=== PATIENT | male | born 1940 | race Caucasian/White ===

== ENCOUNTER → 2019-02-03 | Outpatient (CLI) | payer MEDICARE ==
[~2019-02-03] MED LIST: ATOR1TAB21 PO; B-12100021 PO; BIMA01SOL; CARB25TA9 PO; COUM1TAB18 PO; D3 H10002 PO; FLOM0.4C39 PO; IRON PO; LIPI20TA PO; LOSA100T36 PO; LOSA100T50 PO; MAGN1CAP PO; MULTIPLE VIT PO; MULTTAB86 PO; OCUVTAB4 PO; OMEG10002 PO; OXYC1TAB23 PO; SALA1TAB PO; SITA50TAB PO; SYNT25TA PO; TIMO0.5S29; TRAD5TAB PO; TYLE325T5 PO; VITAMIN B12 PO; VITAMIN D PO
--- NOTE | 2019-02-03 09:50 | REP ---
Complete abdominal sonography: History: Assess spleen size assess for cirrhosis. Comparison renal sonography October 25, 2010. Findings: Scanning through right upper quadrant of the abdomen demonstrates a normal sized thin-walled gallbladder without evidence of stone. There is a 4 mm gallbladder wall polyp. Common bile duct is normal measuring 0.5 cm in greatest diameter. The left lobe of the liver is quite small. The liver is not felt to be enlarged. No focal liver lesion is seen. The pancreas is obscured by abdominal gas. There is no evidence of ascites. Normal caliber aorta is seen with atherosclerotic changes. Renal cortical echogenicity pattern is normal. Right renal dimensions are 10.4 x 6.3 x 5.5 cm. The left kidney measures 12.1 x 4.1 x 4.7 cm. There are small bilateral renal cysts. The largest is a 1.9 cm cyst medially in the left kidney. No hydronephrosis or mass is seen. Homogeneous spleen is seen without evidence of enlargement. 11.7 cm greatest diameter. Impression: Small cortical cysts in the kidneys. Atherosclerotic changes in the aorta. 4 mm gallbladder polyp. Otherwise negative. Electronically Signed by Boyd Madera MD 02/03/2019 10:54 A
== END ==
LOC: M RAD 06:36
PROVIDERS: ATTEND Internal Medicine Hematology
DX: K82.4 Cholesterolosis of gallbladder (principal); N28.1 Cyst of kidney, acquired; D70.9 Neutropenia, unspecified; D69.6 Thrombocytopenia, unspecified; D64.9 Anemia, unspecified

== ENCOUNTER → 2020-12-06 | Outpatient (REF) | payer MEDICARE ==
[~2020-12-06] MED LIST changes: +CARV3.12; +CHOL25TA2 PO; +FURO20TA2; +METO25TA; +ROPI0.253; +SERT25TA85 PO; +TUMS500C PO; +VITA100054 PO; +VITA1CHW7 PO
== END ==
LOC: M LAB REF 13:07
PROVIDERS: ATTEND Nurse Practitioner Family
DX: E83.42 Hypomagnesemia (principal)

== ENCOUNTER 2021-04-16 22:04 | Emergency (ER) | payer MEDICARE ==
[~2021-04-16] VITALS: Ht 177.8 cm; Wt 75.0 kg
[~2021-04-16 22:04] MED LIST changes: +LOSA100T45 PO; -LOSA100T50 PO; +SALA1TAB GT; -SALA1TAB PO
[2021-04-16 23:50] LABS: BASO % 0.5 % (0.0-1.0); EOS % 0.3 % (0.0-3.0); HEMATOCRIT 31.7 % (42.0-52.0); LYMPH # 1.1 10^3/uL (1.5-5.0); LYMPH % 29.2 % (24.0-44.0); MEAN CORPUSCULAR HEMOGLOBIN 27.9 pg (27.0-33.0); MEAN CORPUSCULAR HGB CONC 31.5 g/dl (32.0-36.5); MEAN CORPUSCULAR VOLUME 88.5 fl (80.0-96.0); MONO # 0.8 10^3/uL (0.0-0.8); MONO % 21.2 % (2.0-8.0); NEUTROPHILS # 1.8 10^3/uL (1.5-8.5); NEUTROPHILS % 47.5 % (36.0-66.0); PLATELET COUNT, AUTOMATED 204 10^3/uL (150-450); RED BLOOD COUNT 3.58 10^6/uL (4.30-6.10); WHITE BLOOD COUNT 3.7 10^3/uL (4.0-10.0)
[2021-04-16] MEDS ORDERED: CARV3.12 GT (23:50)
[2021-04-16] MEDS ORDERED: ATOR40TA75 GT (23:50)
[2021-04-16] MEDS ORDERED: TUMS500C GT (23:50)
[2021-04-16] MEDS ORDERED: VITMTA GT (23:50)
[2021-04-16] MEDS ORDERED: D31000TA2 GT (23:50)
[2021-04-16] MEDS ORDERED: OCUVTAB4 GT (23:50)
[2021-04-16] MEDS ORDERED: ZOLO25TA GT (23:50)
[2021-04-16] MEDS ORDERED: BIMA01SOL OU (23:50)
[2021-04-16] MEDS ORDERED: CLIN150C17 GT (23:50)
[2021-04-16] MEDS ORDERED: POTA20PW GT ×3 (23:50)
[2021-04-16] MEDS ORDERED: PLAV1TAB2 GT (23:50)
[2021-04-16] MEDS ORDERED: FERR1ELX GT (23:50)
[2021-04-16] MEDS ORDERED: OMEP1CAP73 GT (23:50)
[2021-04-16] MEDS ORDERED: FURO20TA2 GT (23:50)
[2021-04-16] MEDS ORDERED: DOCU5LIQ GT (23:50)
[2021-04-16] MEDS ORDERED: CARB-89 GT (23:50)
[2021-04-16] MEDS ORDERED: FLOM0.4C39 GT (23:50)
[2021-04-16] MEDS ORDERED: ROPI0.253 GT (23:50)
[2021-04-16] MEDS ORDERED: ASPI1CHW3 GT (23:50)
[2021-04-16] MEDS ORDERED: TIMO0.5S39 OU (23:50)
[2021-04-16] MEDS ORDERED: OMEG12003 GT (23:50)
[2021-04-16] MEDS ORDERED: SYNT25TA GT (23:50)
[2021-04-16] MEDS ORDERED: MAGN500T12 GT (23:50)
[2021-04-16] MEDS ORDERED: AMIO200T49 GT (23:50)
[2021-04-16] MEDS ORDERED: CYAN100050 GT (23:50)
[2021-04-16] MEDS ORDERED: HOME MED LIST COMPLETE! XX SCH (23:55)
[2021-04-17 00:33] LABS: ALBUMIN 2.7 GM/DL (3.2-5.2); ALT/SGPT 22 U/L (12-78); BILIRUBIN,DIRECT 0.3 MG/DL (0.0-0.2); BILIRUBIN,TOTAL 0.5 MG/DL (0.2-1.0); BLOOD UREA NITROGEN 18 MG/DL (7-18); CALCIUM LEVEL 8.3 MG/DL (8.8-10.2); CARBON DIOXIDE LEVEL 27 MEQ/L (21-32); CHLORIDE LEVEL 102 MEQ/L (98-107); CREATININE FOR GFR 0.88 MG/DL (0.70-1.30); GLOMERULAR FILTRATION RATE > 60.0 (>35); GLUCOSE, FASTING 153 MG/DL (70-100); LIPASE 622 U/L (73-393); POTASSIUM SERUM 4.2 MEQ/L (3.5-5.1); SODIUM LEVEL 136 MEQ/L (136-145); TOTAL PROTEIN 6.6 GM/DL (6.4-8.2)
[2021-04-17 03:19] VITALS: BP 131/65
== END 2021-04-17 05:18 | disposition home or self-care (01) ==
LOC: EDBD 22:04 → M ED 22:04
DX: J18.9 Pneumonia, unspecified organism (principal); R11.10 Vomiting, unspecified; K21.9 Gastro-esophageal reflux disease without esophagitis; I25.2 Old myocardial infarction; I10 Essential (primary) hypertension; E11.9 Type 2 diabetes mellitus without complications; G20 Parkinson's disease; N17.9 Acute kidney failure, unspecified; Z86.79 Personal history of other diseases of the circulatory system; Z88.1 Allergy status to other antibiotic agents; Z88.6 Allergy status to analgesic agent; Z79.899 Other long term (current) drug therapy